=== PATIENT | female | born 1965 | race Caucasian/White ===

== ENCOUNTER 2022-11-02 13:27 | Outpatient (CLI) | payer BC, SELFPAY ==
--- NOTE | 2022-11-02 13:45 | MR_ITS ---
[address] [address] Phone:?[phone] Fax:?[phone] Referring Physician Information: Chapo Estrada M.D. [address] [facility] [address] Phone:?[phone] Fax:?[phone] Patient:Roseann Santos D.O.B:?1965 Sex:?Female Phone:?[phone] [facility] MRN:?[id number] Exam Date:?11/02/2022 ? EXAM: MRI of the RIGHT FOREARM, without contrast CLINICAL: Female, 57 years old, with right forearm pain. Reported mass found during EMG. INDICATION: Evaluate for median nerve compression. PRIOR SURGERY: None reported. PLAIN FILMS: None available. COMPARISONS: No prior MRIs available. TECHNICAL: Using a 1.5 T MR scanner and localizing surface coil: 5.0 mm?sagittals: PD, T2 5.0 mm?coronals: PD, T2, STIR 5.0 mm?axials: T1, T2FS FINDINGS: Bones: Radius and ulna are intact and unremarkable, without fracture, stress injury, marrow edema or osseous mass. Myotendinous: Flexor and extensor muscles and tendons are unremarkable, without strain, tear, tendinopathy or mass. No muscle atrophy or denervation signal alteration. Subcutaneous: Abundant subcutaneous adipose tissue but otherwise no masses or edema. Neurovascular: The median nerve is relatively unremarkable in appearance and its course from level of the elbow joint down to the level of the carpal tunnel without convincing intrinsic or extrinsic masses. Evaluation of the median nerve at the level of the wrist and carpal tunnel is somewhat limited with only T1 axial images performed in that plane which extend only to the level of the distal margin of the carpal tunnel/transverse carpal ligament, but is visualized and appears relatively unremarkable. IMPRESSION: 1. Unremarkable MRI of the right forearm. 2. As visualized no MR findings of intrinsic or extrinsic masses or signal alteration of the median nerve from the elbow down to the level of the carpal tunnel. It must be noted that this large [id number] examination with limited axial sequence at the wrist/carpal tunnel is not not necessarily considered optimal for evaluation of the carpal tunnel, but as visualized appears unremarkable. [facility] Electronically signed on 11/03/2022 10:22:00 AM by Bhargav Davenport M.D.
== END 2022-11-02 13:28 | disposition home or self-care (01) ==
PROVIDERS: Visit Provider Orthopaedic Surgery
DX: M79.631 Pain in right forearm (principal); G56.10 Other lesions of median nerve, unspecified upper limb; G56.01 Carpal tunnel syndrome, right upper limb
CPT/HCPCS: 73218

== ENCOUNTER 2022-11-11 13:06 | Day surgery (SDC) | payer BC, SELFPAY ==
[2022-11-11] VITALS (8 sets, daily range): BP systolic 112–138; BP diastolic 56–62; PULSE 72–85; RESP 15–17; TEMP 36.2–36.5; O2SAT 96–100; BMI 39.4
[2022-11-11] MEDS: BUPIVACAINE 0.5% 30 ML 5 ML INJECTION (13:57)
[2022-11-11] MEDS: lidocaine HCL 2 % MULTIDOSE 20 ML VIAL 3.5 ML INJECTION (13:57)
--- NOTE | 2022-11-11 14:07 | SUR.OPER ---
PATIENT QUESTIONS ANSWERED SATISFACTORILY PREOPERATIVELY.? PATIENT BROUGHT TO OR #3 PER WHEELCHAIR.? Patient positioned supine on OR #3 bed.? The perioperative?team supported right arm bilaterally on arm boards. Final approval of positioning by surgeon.? PRIOR TO LOCAL INJECTION, TIME OUT PREFORMED AT 13:56.
--- NOTE | 2022-11-11 14:23 | PM.ORPRC ---
Procedure Note Date of procedure: 11/11/22 Procedure: Preop diagnosis: Left upper extremity carpal tunnel syndrome Postop diagnosis: Left upper extremity carpal tunnel syndrome Procedure: Left upper extremity carpal tunnel release Anesthesia: Local Surgeon: Chapo Estrada MD assistant professor of english: IGNACIO Thornton EBL: 5 mL Complications: None Specimens: None Drains: None Indications: The patient has a history of left upper extremity carpal tunnel syndrome symptoms. Despite appropriate nonoperative management consisting of nighttime bracing and occupational therapy they continue to have symptoms. Operative intervention was recommended. The risks, benefits alternatives and expected outcomes were discussed in detail. These included but were not limited to: Infection, bleeding, injury to blood vessel or nerve, venous thromboembolism. All questions were answered to their satisfaction. The patient was placed supine on the operating room table. Local anesthesia was established with 0.5% Marcaine without epinephrine and 2% lidocaine without epinephrine. The hand was prepped and draped in usual sterile fashion. The limb was elevated the forearm pneumatic tourniquet was inflated to 250 mm of mercury. A longitudinal incision was made centered over the radial border of the ring finger at the base of the palm. Subcutaneous dissection was sharply taken through the palmar fascia and the palmaris brevis to the transverse carpal ligament. The ligament was divided in line with the incision. Proximal and distal dissection was carried with tenotomy and Metzenbaum scissors for a wide decompression of the carpal tunnel. The tourniquet was released, bleeding was controlled with direct pressure. The wound was closed with a 3-0 nylon. A bulky dry dressing was applied, sponge and needle counts were correct x 2. The patient tolerated the procedure well, there were no apparent complications. They were sent to same day surgery in satisfactory condition. Plan: Use of the hand as tolerates. Discontinue the intraoperative dressing on postoperative day 3 and may get the wound wet as tolerates. Follow up in the office in 2 weeks for a wound check and suture removal.
[2022-11-11] MEDS: ETHYL CHLORIDE 1 APPLICATION 1 APPLIC TOPICAL (14:24)
== END 2022-11-11 14:51 | disposition home or self-care (01) ==
PROVIDERS: Visit Provider Orthopaedic Surgery
PROC: (CPT 64721; principal; 2022-11-11 14:00)
DX: G56.02 Carpal tunnel syndrome, left upper limb (principal)
CPT/HCPCS: 64721; J3490